=== PATIENT | female | born 1945 | race Caucasian/White ===

== ENCOUNTER 2020-09-06 14:21 | Outpatient (CLI) | payer MEDICARE | END 2020-09-06 23:59 | disposition home or self-care (01) | LOC: MSC 14:21 | PROVIDERS: ATTEND Internal Medicine | DX: M54.9 Dorsalgia, unspecified (principal); K14.6 Glossodynia; K59.00 Constipation, unspecified; N39.0 Urinary tract infection, site not specified; N63.0 Unspecified lump in unspecified breast; F41.9 Anxiety disorder, unspecified; I10 Essential (primary) hypertension; K21.9 Gastro-esophageal reflux disease without esophagitis; J44.9 Chronic obstructive pulmonary disease, unspecified; E78.5 Hyperlipidemia, unspecified; Z91.09 Other allergy status, other than to drugs and biological substances; G43.909 Migraine, unspecified, not intractable, without status migrainosus; F10.21 Alcohol dependence, in remission; Z79.899 Other long term (current) drug therapy ==

== ENCOUNTER 2020-09-07 10:16 | Outpatient (CLI) | payer MEDICARE, BC | END 2020-09-07 23:59 | disposition home or self-care (01) | LOC: MSC 10:16 | PROVIDERS: ATTEND Anesthesiology | DX: M79.2 Neuralgia and neuritis, unspecified (principal); M79.604 Pain in right leg; M46.96 Unspecified inflammatory spondylopathy, lumbar region; M40.299 Other kyphosis, site unspecified; M62.830 Muscle spasm of back ==

== ENCOUNTER 2020-12-29 08:21 | Outpatient (CLI) | payer MEDICARE, BC | END 2020-12-29 23:59 | disposition home or self-care (01) | LOC: MSC 08:21 | PROVIDERS: ATTEND Internal Medicine | DX: M54.9 Dorsalgia, unspecified (principal); J44.9 Chronic obstructive pulmonary disease, unspecified; K59.00 Constipation, unspecified; N39.0 Urinary tract infection, site not specified; F41.9 Anxiety disorder, unspecified; I10 Essential (primary) hypertension; K21.9 Gastro-esophageal reflux disease without esophagitis; E78.5 Hyperlipidemia, unspecified; Z91.09 Other allergy status, other than to drugs and biological substances; G43.909 Migraine, unspecified, not intractable, without status migrainosus; F10.21 Alcohol dependence, in remission; I83.893 Varicose veins of bilateral lower extremities with other complications; Z79.899 Other long term (current) drug therapy ==